=== PATIENT | female | born 2000 | race Caucasian/White ===

== ENCOUNTER 2018-07-24 13:13 | Emergency (ER) | payer MEDICAID ==
[~2018-07-24] VITALS: Ht 160 cm; Wt 68.2 kg
[~2018-07-24 13:13] MED LIST: AMOX-580 PO; TRAM50TA2 PO
[2018-07-24 13:57] VITALS: BP 117/62
[2018-07-24 14:45] LABS: CLARITY,URINE SLIGHTLY CLOUDY (Clear); COLOR,URINE YELLOW (Yellow); GLUCOSE, URINE NEGATIVE (Neg); KETONES,URINE NEGATIVE (Neg); LEUKOCYTE ESTERASE ,URINE TRACE (Neg); NITRITES, URINE NEGATIVE (Neg); OCCULT BLOOD,URINE NEGATIVE (Neg); PROTEIN,URINE NEGATIVE (Neg); UA COLLECTION TYPE CLN CATCH MIDSTREAM; UROBILINOGEN,URINE 0.2 E.U/dL (0.2-1.0)
[2018-07-24 14:46] LABS: URINE HCG NEGATIVE (NEG)
[2018-07-24 14:55] LABS: BACTERIA,URINE 1+ /HPF (Neg); MUCUS STRANDS FEW /LPF (Neg); SQUAMOUS EPITHELIAL CELL,UR MODERATE /LPF (FEW); WBC CLUMPS,URINE MODERATE /HPF (NEGATIVE); WBC,URINE 20-30 /HPF (0-4)
[2018-07-24 14:56] LABS: RBC,URINE 0-2 /HPF (0-2)
[2018-07-24] MEDS ORDERED: SULF1TAB49 PO (15:30)
== END 2018-07-24 15:37 | disposition home or self-care (01) ==
LOC: ER 13:14
DX: N39.0 Urinary tract infection, site not specified (principal); Z79.2 Long term (current) use of antibiotics; Z79.899 Other long term (current) drug therapy
CPT/HCPCS: 81001; 81025; 87088; 99284